=== PATIENT | female | born 1980 | race Caucasian/White ===

== ENCOUNTER 2018-09-14 03:06 | Inpatient (IN) | payer OTHER ==
[2018-09-14] MEDS ORDERED: Oxytocin 10 UNITS/ML VIAL ONE (03:08)
[2018-09-14 03:47] VITALS: BMI 28.8
--- NOTE | 2018-09-14 03:53 | PDOC.OPDEL ---
OB Operative/Delivery Note Delivery Dr/Surgeon: Jose Pre-Delivery Diagnosis: active labor Procedure/Post Delivery Dx: spontaneous vaginal delivery Weeks gestation: 39 Anesthesia: local - Findings A Sex: male - 1 min: 9 - 5 min: 9 - Additional Findings/Plan Placenta delivered: spontaneous Repaired Obstetrical Laceration: 2nd degree
[2018-09-14 05:34] LABS: Hemoglobin 12.2 g/dL (12.0-16.0); Mean Corpuscular Hemoglobin 33.4 pg (27.0-31.0); Mean Platelet Volume 7.6 fL (7.4-10.4); Platelet Count 235 thou/uL (130-400); RBC Distribution Width 12.4 % (11.5-14.5); Red Blood Cell (RBC) Count 3.66 mill/uL (4.20-5.40); White Blood Cell (WBC) Count 18.5 thou/uL (4.8-10.8)
[2018-09-14] MEDS ORDERED: Milk Of Magnesia 30 ML UDCUP PO PRN (05:49)
[2018-09-14] MEDS ORDERED: Preparation H Ointment 28 GM TUBE PR PRN (05:49)
[2018-09-14] MEDS ORDERED: Acetaminophen/Codeine 30-300mg Tablet PO PRN ×2 (05:49)
[2018-09-14] MEDS ORDERED: Ondansetron PF 4 MG/2 ML Vial IVP PRN (05:49)
[2018-09-14] MEDS ORDERED: NS / Oxytocin 40 units/1000ml 1,000 ML IV SCH (05:49)
[2018-09-14] MEDS ORDERED: Bisacodyl 10 MG SUPP PR PRN (05:49)
[2018-09-14] MEDS ORDERED: diphenhydrAMINE 25 MG CAP PO PRN (05:49)
[2018-09-14] MEDS ORDERED: Benzocaine-Menthol 82.5 ML CAN TOP PRN (05:49)
[2018-09-14 06:18] LABS: Hep B Surf Ag Non-Reactive S/CO (NonReactive); Syphilis Antibody Nonreactive (Nonreactive); Syphilis Antibody Index 0.03 S/CO (<1.00 Non-Reactive)
[2018-09-14] MEDS: Docusate Calcium (SURFAK) 240 MG CAP PO SCH ×2 (10:30→21:23)
[2018-09-14] MEDS: Prenatal Vitamin 1 TAB PO SCH (10:30)
[2018-09-14] MEDS: Adacel (T-DAP) 0.5 ML SYRINGE IM ONE (10:30)
[2018-09-14] MEDS: Ferrous Sulfate 325 MG TAB PO SCH ×2 (10:30→16:59)
[2018-09-14] MEDS: Ibuprofen 800 MG TAB PO SCH ×2 (10:30→16:58)
[2018-09-15] MEDS: Ibuprofen 800 MG TAB PO SCH (00:25)
--- NOTE | 2018-09-15 05:39 | PDOC.PP ---
Post Progress Note Post Day #: 1 Subjective: Doing well, requestd dsc by 1000 to "go to son's baseball game" PO intake tolerated: yes Flatus: yes Ambulation: yes Vital Signs (12 hours) Temp Pulse Resp BP BP Pulse Ox 09/15/18 03:35 97.9 F 83 20 117/68 09/15/18 00:26 97.7 F 83 20 128/73 09/14/18 19:31 97.6 F 98 20 131/81 97 Weight Weight 190 lb 24 hour vitals reviewed - Physical Examination General: NAD Cardiovascular: no m/r/g Respiratory: clear to auscultation bilaterally Abdominal: + bowel sounds, lochia, no distention, appropriately TTP Extremities: negative homans (B) Neurological: no gross focal deficits Psychiatric: A&Ox3, normal affect Result Diagrams: 09/14/18 05:22 Additional Labs: Post Labs Blood Type A POSITIVE 09/14/18 07:03 Hep Bs Antigen Non-Reactive S/CO (NonReactive) 09/14/18 05:22 (1) Term of male Code(s): Z37.0 - SINGLE LIVE Status: Acute - Assessment/Plan PPD 1 doing well OK for DC to home this AM F/U with MD in 2-4 weeks
[2018-09-15 08:18] VITALS: BP 108/66; TEMP 98.2
[2018-09-15] MEDS: Prenatal Vitamin 1 TAB PO SCH (09:20)
[2018-09-15] MEDS: Docusate Calcium (SURFAK) 240 MG CAP PO SCH (09:20)
[2018-09-15] MEDS: Ferrous Sulfate 325 MG TAB PO SCH (09:20)
[2018-09-15] MEDS: Adacel (T-DAP) 0.5 ML SYRINGE IM ONE (09:20)
== END 2018-09-15 13:30 | disposition home or self-care (01) | DRG 807 ==
LOC: L&D 03:06 → 3SW 06:16
PROVIDERS: ADMIT Obstetrics & Gynecology; ATTEND Obstetrics & Gynecology
PROC: 10E0XZZ Delivery of Products of Conception, External Approach (ICD-10-PCS; principal; 2018-09-14)
PROC: 0KQM0ZZ Repair Perineum Muscle, Open Approach (ICD-10-PCS; 2018-09-14)
DX: O70.1 Second degree perineal laceration during delivery (principal); Z37.0 Single live birth; Z3A.39 39 weeks gestation of pregnancy
CPT/HCPCS: 36415; 85027; 86780; 86850; 86900; 86901; 87340; 90715; 99285; J2590